=== PATIENT | male | born 1995 | race Caucasian/White ===

== ENCOUNTER 2021-09-30 01:41 | Emergency (ER) | payer SELFPAY ==
[~2021-09-30] VITALS: Ht 182.8 cm; Wt 95.3 kg
[~2021-09-30 01:41] MED LIST: NKHM; PERCOCET 325 MG1 TA2 PO; SEPTRA DS 800 M1 TAB PO; TUCKS TP
[2021-09-30 03:02] LABS: BASO % 0.3 % (0.0-1.0); EOS # 0.1 10*3/uL (0.0-0.4); HEMATOCRIT 41.1 % (42.0-52.0); LYMPH # 0.7 10*3/uL (1.3-4.4); LYMPH % 10.5 % (27.0-41.0); MEAN CELL VOLUME 87.8 fl (80.0-94.0); MEAN CORPUSCULAR HGB 30.1 pg (27.0-31.0); MEAN CORPUSCULAR HGB CONC 34.3 g/dl (33.0-37.0); MEAN PLATELET VOLUME 10.3 fl (9.6-12.3); MONO # 0.5 10*3/uL (0.1-1.0); MONO % 6.6 % (3.0-9.0); NEUT # 5.5 10*3/uL (2.3-7.9); NEUT % 80.5 % (47.0-73.0); PLATELET COUNT AUTOMATED 237 10*3/uL (130-400); RED BLOOD COUNT 4.68 10*6/uL (4.50-5.90); WHITE BLOOD COUNT 6.8 10*3/uL (4.8-10.8)
[2021-09-30 03:12] LABS: BILIRUBIN Negative (Negative); BLOOD Negative (Negative); CLARITY Cloudy (Clear); COLOR Yellow (Yellow); GLUCOSE Negative (Negative); KETONE Negative (Negative); LEUKO ESTERASE Negative (Negative); NITRITE Negative (Negative); SPECIFIC GRAVITY 1.015 (1.001-1.030)
[2021-09-30 03:19] LABS: URINE AMPHETAMINES > 1000 (1000ng/ml); URINE BARBITURATES < 200 (200ng/ml); URINE BENZODIAZEPINES > 200 (200ng/ml); URINE CANNABINOIDS (THC) > 50 (50ng/ml); URINE COCAINE < 300 (300ng/ml); URINE METHADONE < 300 (300ng/ml); URINE OPIATES < 300 (300ng/ml)
[2021-09-30 03:20] LABS: URINE PHENCYCLIDINE < 25 (25ng/ml)
[2021-09-30 03:23] LABS: ACETAMINOPHEN (TYLENOL) < 5.0 ug/ml (10-30); ALBUMIN 3.6 gm/dl (3.1-4.5); ALKALINE PHOSPHATASE 61 U/L (45-117); BUN 9 mg/dl (7-24); CHLORIDE 106 mmol/L (98-107); CPK 94 U/L (39-308); CREATININE 0.87 mg/dL (0.70-1.30); ETHYL ALCOHOL < 3.0 mg/dl (<3); POTASSIUM 3.8 mmol/L (3.5-5.1); SGOT/AST 17 IU/L (3-35); SGPT/ALT 23 U/L (12-78); SODIUM 138 mmol/L (136-145); TOTAL PROTEIN 6.7 gm/dL (6.4-8.2)
[2021-09-30 03:39] LABS: BACTERIA TRACE; WBC 0-2 wbc/hpf (0-5)
== END 2021-09-30 09:14 | disposition home or self-care (01) ==
LOC: ED 01:41
PROVIDERS: Emergency Medicine
DX: F41.9 Anxiety disorder, unspecified (principal); F17.200 Nicotine dependence, unspecified, uncomplicated

== ENCOUNTER 2021-10-20 18:39 | Emergency (ER) | payer MEDICAID ==
[~2021-10-20] VITALS: Ht 182.8 cm; Wt 93.0 kg
[2021-10-20] MEDS ORDERED: VISTARIL25 M2 PO (18:49)
[2021-10-20] MEDS ORDERED: PROZAC20 MG PO (18:49)
[2021-10-20] MEDS ORDERED: VIAGRA100 MG PO (18:50)
[2021-10-20 19:44] LABS: BASO % 0.5 % (0.0-1.0); EOS # 0.2 10*3/uL (0.0-0.4); EOS % 3.2 % (1.0-4.0); HEMATOCRIT 43.6 % (42.0-52.0); LYMPH # 1.9 10*3/uL (1.3-4.4); MEAN CELL VOLUME 88.4 fl (80.0-94.0); MEAN CORPUSCULAR HGB CONC 33.9 g/dl (33.0-37.0); MONO # 0.5 10*3/uL (0.1-1.0); MONO % 7.3 % (3.0-9.0); NEUT # 3.9 10*3/uL (2.3-7.9); NEUT % 59.8 % (47.0-73.0); PLATELET COUNT AUTOMATED 241 10*3/uL (130-400); RED BLOOD COUNT 4.93 10*6/uL (4.50-5.90); RED CELL DISTRI WIDTH 12.2 % (0-14.5); WHITE BLOOD COUNT 6.6 10*3/uL (4.8-10.8)
[2021-10-20 20:00] LABS: ACETAMINOPHEN (TYLENOL) 8.2 ug/ml (10-30); ALBUMIN 3.5 gm/dl (3.1-4.5); ALKALINE PHOSPHATASE 59 U/L (45-117); BUN 6 mg/dl (7-24); CHLORIDE 109 mmol/L (98-107); ETHYL ALCOHOL < 3.0 mg/dl (<3); POTASSIUM 3.7 mmol/L (3.5-5.1); SGOT/AST 13 IU/L (3-35); SGPT/ALT 22 U/L (12-78); SODIUM 143 mmol/L (136-145); TOTAL PROTEIN 6.8 gm/dL (6.4-8.2)
[2021-10-20 20:13] LABS: BILIRUBIN Negative (Negative); BLOOD Negative (Negative); CLARITY Clear (Clear); COLOR Yellow (Yellow); GLUCOSE Negative (Negative); KETONE Trace (Negative); LEUKO ESTERASE Negative (Negative); NITRITE Negative (Negative); SPECIFIC GRAVITY 1.015 (1.001-1.030)
[2021-10-20 20:20] LABS: URINE AMPHETAMINES > 1000 (1000ng/ml); URINE BARBITURATES < 200 (200ng/ml); URINE BENZODIAZEPINES > 200 (200ng/ml); URINE CANNABINOIDS (THC) > 50 (50ng/ml); URINE COCAINE < 300 (300ng/ml); URINE METHADONE < 300 (300ng/ml); URINE OPIATES < 300 (300ng/ml)
[2021-10-20 20:22] LABS: URINE PHENCYCLIDINE < 25 (25ng/ml)
[2021-10-20 20:24] LABS: BACTERIA TRACE; EPITHELIAL CELLS 0-2; RBC 0-2 rbc/hpf (0-2)
== END 2021-10-20 23:06 | disposition home or self-care (01) ==
LOC: ED 18:39
PROVIDERS: Emergency Medicine
DX: F15.90 Other stimulant use, unspecified, uncomplicated (principal); Z20.822 Contact with and (suspected) exposure to COVID-19; Z79.899 Other long term (current) drug therapy

== ENCOUNTER → 2025-08-11 | Outpatient (CLI) | payer OTHER ==
[~2025-08-11] MED LIST changes: +PROZAC20 MG PO; +VIAGRA100 MG PO; +VISTARIL25 M2 PO
[2025-08-15 14:07] LABS: TESTOS, FREE 10.4 pg/mL (8.7-25.1)
== END | disposition home or self-care (01) ==
LOC: LAB 08:49
PROVIDERS: ATTEND Nurse Practitioner
DX: N52.9 Male erectile dysfunction, unspecified (principal); R68.82 Decreased libido; F33.1 Major depressive disorder, recurrent, moderate